=== PATIENT | female | born 1980 | race Caucasian/White ===

== ENCOUNTER 2017-02-24 18:39 | Emergency (ER) | payer OTHER ==
--- NOTE | 2017-02-24 19:46 | ERNOTE ---
<Marya Dias - Last Filed: 02/24/17 20:03> Back Pain ER HPI Date of Service: 02/24/17 Time Seen by Provider: 02/24/17 19:35 Source: patient Exam Limitations: no limitations Immunizations: IMMUNIZATION HX Immunizations Up to Date Yes History of Influenza Vaccine No Allergies/Adverse Reactions: Allergies No Known Allergies Allergy (Verified 02/24/17 18:51) Home Medications: HOME MEDICATIONS Ibuprofen [Motrin] 600 mg PO TID PRN #30 tab 02/24/17 [Last Taken Unknown] Lorazepam [Ativan] 10 mg PO TID 02/24/17 [Last Taken Unknown] Metaxalone [Skelaxin] 800 mg PO TID #15 tablet 02/24/17 [Last Taken Unknown] Methylprednisolone [Medrol Dosepak] 4 mg PO QID #21 tab 02/24/17 [Last Taken Unknown] Narrative: Patient comes into ED for having bilateral lower back pain for three days. Three days ago this patient laid down in the tub and when she attempted to get up she felt a "pop" and since then has had low back pain which has gotten progressively worse over the past three days. She has tried Tylenol and Motrin but it has not helped. She denies any urinary symptoms, fevers or chills. When she takes a deep breath she feels the pain worsen Review of Systems - Review of Systems Constitutional: Present: no symptoms reported EYE: Present: no symptoms reported ENT: Present: no symptoms reported Respiratory: Present: no symptoms reported Cardiology: Present: no symptoms reported Gastrointestinal/Abdominal: Present: no symptoms reported Genitourinary: Present: no symptoms reported Musculoskeletal: Present: See HPI Skin: Present: no symptoms reported Neurological: Present: other - pt states that she feels the pain radiate down her left buttock to mid thigh area - Patient's Past Medical History Patient History - Medical: No pertinent hx, Fibromyalgia Patient History - Cardiac/Respiratory: No pertinent hx Patient History - Cancer: No Hx of Cancer Patient History - Surgical Procedures: Appendectomy, Tubal Ligation Patient History - Other: None LMP (females 10-50): other - Social History Living Situations: spouse Abuse History: No History of abuse Psych History: Hx of Anxiety Smoking Status: Current every day smoker Alcohol Use: none Drug Use: none - Immunizations Immunizations Up to Date: Yes History of Influenza Vaccine: No Physical Exam - Physical Exam General Appearance: Present: wd/wn, alert, no apparent distress, other - walks without a limp Respiratory: Present: no respiratory distress, normal breath sounds, no accessory muscle use, chest nontender, lungs clear Cardiovascular/Chest: Present: regular rate, rhythm, no murmur, normal peripheral pulses Back Exam: Present: normal inspection, other - pt is obese and she has an exagerated lordosis of her lumbar spine. She has no lesions or deformities. Palpation of her low back reveals bilateral paravertebral muscle spasm. Her DTRs are completely intact Extremity Exam: Present: normal inspection Neurological Exam: Present: alert, oriented, normal mood/affect ED Progress - Vital Signs Patient's Vital Signs:: I have reviewed the patient's vital signs. Vital Signs: Vital Signs 02/24/17 18:46 Temperature 36.8 C Pulse Rate 83 Respiratory 16 Rate Blood Pressure 111/62 O2 Sat by Pulse 96 Oximetry - Progress/Reassessment Chief Complaint: Back Pain - Transfer of Care Physician Sign Out: Marya Dias Receiving Physician: Geo Gutierrez Pending Results: Pain-control, X-ray results Departure Clinical Impression: Back pain Qualifiers: Back pain location: low back pain Chronicity: acute Back pain laterality: left Sciatica presence: with sciatica Sciatica laterality: sciatica of left side Qualified Code(s): M54.42 - Lumbago with sciatica, left side - Departure Disposition: Home Follow Up Needed Condition: Fair Instructions: Sciatica, [id number] Additional Instructions: REST BUT NOT COMPLETE BED REST. GENTLE ACTIVITY. ICE FOR 20 MINS FOLLOWED BY HEAT FOR 20 MINS , EVERY 4 HOURS. GRADUALLY INCREASE YOUR ACTIVITY TOLERATED. ADD THE MUSCLE RELAXANT AND STEROID DIRECTED. CONTINUE THE ANTI- INFLAMMATORY DIRECTED AND RECHECK WITH YOUR FAMILY DOCTOR IN 3-5 DAYS . YOU MAY ALSO APPLY BIO-FREEZE OR PREFORM TO THE SORE AREA FOR COMFORT. YOUR DOCTOR MAY HAVE YOU GET INVOLVED WITH PHYSICAL THERAPY IF YOU ARE SLOW TO IMPROVE. NO DRIVING OR DRINKING ALCOHOL OR ACTIVITY THAT REQUIRES ALERTNESS WHEN USING THE MUSCLE RELAXANT, SKELAXIN. Prescriptions: Ibuprofen [Motrin] 600 mg PO TID PRN #30 tab PRN Reason: Pain Metaxalone [Skelaxin] 800 mg PO TID #15 tablet Methylprednisolone [Medrol Dosepak] 4 mg PO QID #21 tab <Geo Gutierrez - Last Filed: 02/24/17 20:27> Back Pain ER HPI Date of Service: 02/24/17 Immunizations: IMMUNIZATION HX Immunizations Up to Date Yes History of Influenza Vaccine No ED Progress - Vital Signs Patient's Vital Signs:: I have reviewed the patient's vital signs. Vital Signs: Vital Signs 02/24/17 18:46 Temperature 36.8 C Pulse Rate 83 Respiratory 16 Rate Blood Pressure 111/62 O2 Sat by Pulse 96 Oximetry - X-Ray X-Ray #1 X-Ray: lumbosacral - XRAY WITH NO ACUTE ABNL. Interpretation: Interp. by me - Transfer of Care Expected Disposition: Discharge
--- OUTSIDE RECORDS SUMMARY | 2017-02-24 20:17 | XMS REPORT | Continuity of Care Document ---
:1980 Author Organization [place] [address] Care Team Providers Name Role Phone Sirena Nix Primary Care Provider [phone] Source Comments This disclosure is being made pursuant to the [employer] program and maynot contain all information available regarding this patient.[facility] Active Allergies and Adverse Reactions No Known Allergies Current Medications Be aware that medications may not be up to date as of this document. Alwaysverify current medications with the patient. Prescription Sig. Disp. Refills Start Date End Date Status levonorgestrel by Intrauterine Active (MIRENA) 20 MCG/24HR route. Insert day IUD 02/06/2014 LORazepam (ATIVAN) 1 Take 1 tablet by 60 tablet 0 08/24/2015 Active MG tablet mouth 2 (two) times daily as needed. adalimumab (HUMIRA Inject 0.8 mLs 6 each 3 12/09/2015 Active PEN) 40 MG/0.8ML PNKT into the skin injection every 14 (fourteen) days. cyclobenzaprine Take 1 tablet by 30 tablet 1 01/26/2016 Active (FLEXERIL) 10 MG mouth 3 (three) tablet times daily as needed for Muscle spasms. morphine (ISHAN) 30 TK ONE CAPSULE PO 0 02/19/2016 Active MG 24 hr capsule DAILY HYDROcodone-acetaminop Take 1 tablet by 60 tablet 0 02/29/2016 Active hen (NORCO) 5-325 MG mouth every 12 per tablet (twelve) hours as needed for Pain. Active Problems Problem Noted Date Ankylosing spondylitis (HCC) 12/09/2015 Subluxation of cervical vertebra 07/02/2015 Knee pain, left 07/20/2014 Obesity 06/10/2014 Acute upper respiratory infections of unspecified site 06/10/2014 Vitamin D deficiency 01/07/2014 Overview: Overview: Severity:minor Chronicity:acute SIRENA NIX MD Anxiety state 11/22/2007 Overview: Overview: Severity:controlled Chronicity:chronic EMY PEDERSON MD Immunizations Name Dates Previously Given Next Due Hepatitis B 06/19/2009,12/08/2008 Influenza Split 08/08/2013,09/30/2008 Td, preservative free 02/21/1997 Tdap 11/22/2007 Social History Tobacco Use Types Packs/Day Years Used Date Current Every Day Smoker Smokeless Tobacco: Never Used Tobacco Cessation:Ready to Quit: No; Counseling Given: Yes Comments: Last Filed Vital Signs Vital Sign Reading Time Taken Blood Pressure 108/70 02/29/2016 4:47 PM CDT Pulse 84 02/29/2016 4:47 PM CDT Temperature 36.3 C (97.3 F) 02/29/2016 4:47 PM CDT Respiratory Rate 18 11/04/2015 1:58 PM 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
[2017-02-24 22:12] VITALS: BP 134/76
== END 2017-02-24 20:27 | disposition home or self-care (01) ==
LOC: ER 18:39
DX: M54.42 Lumbago with sciatica, left side (principal); Z72.0 Tobacco use